=== PATIENT | male | born 1955 | race Caucasian/White ===

== ENCOUNTER 2022-09-02 08:24 | Outpatient (CLI) | payer OTHER ==
[~2022-09-02] VITALS: Ht 180.3 cm; Wt 93.0 kg
[2022-09-02] MEDS ORDERED: albuterol 2.5 MG/3 ML nebule NEB ONE (09:15)
== END 2022-09-02 23:59 | disposition home or self-care (01) ==
LOC: RT 08:24
PROVIDERS: ATTEND Chiropractor
DX: C45.9 Mesothelioma, unspecified (principal)
CPT/HCPCS: 94060; 94760